=== PATIENT | male | born 1955 | race Caucasian/White ===

== ENCOUNTER 2017-12-03 20:59 | Emergency (ER) | payer BC ==
[~2017-12-03] VITALS: Ht 175.3 cm; Wt 74.3 kg
[2017-12-03] MEDS ORDERED: FAMOTIDINE 20 MG/2 ML VIAL ONE (21:14)
[2017-12-03] MEDS ORDERED: DEXAMETHASONE SOD PHOS 10 MG/ML VIAL ONE (21:14)
[2017-12-03] MEDS ORDERED: diphenhydrAMINE 50 MG/ML VIAL ONE (21:14)
[2017-12-03] MEDS ORDERED: methylPREDNISolone SOD SUCC PF 125 MG/2 ML VIAL. ONE (21:14)
[2017-12-03] MEDS ORDERED: methylPREDNISolone SOD SUCC PF 125 MG/2 ML VIAL. IV ONE (21:30)
[2017-12-03] MEDS ORDERED: FAMOTIDINE 20 MG TABLET PO ONE (21:30)
[2017-12-03] MEDS ORDERED: diphenhydrAMINE 50 MG/ML VIAL IV ONE (21:30)
[2017-12-03] MEDS ORDERED: FAMOTIDINE 20 MG/2 ML VIAL IVP ONE (21:45)
[2017-12-03 22:10] VITALS: BP 116/55
[2017-12-03] MEDS ORDERED: FAMO-63 PO (22:18)
[2017-12-03] MEDS ORDERED: PRED50TA PO (22:19)
--- NOTE | 2017-12-03 22:19 | PHYS DOC ---
Adult General Chief Complaint Chief Complaint: SKIN RASH/ABSCESS HPI HPI Patient is a 60-year-old gentleman who presents here today secondary to a diffuse body rash which she feels is likely secondary to recently ingesting cashews. Patient reports he ate cashews and shortly thereafter started having abdominal cramping had 3 bouts of diarrhea while he was walking in a store. Shortly thereafter he started experiencing a rash and itching to the skin. Patient reports he went home and took 35 mg of Benadryl by mouth without any significant improvement. Patient reports she's been having abdominal cramping and diarrhea. She denies any shortness of breath. Patient has any wheezing. Patient has any fevers shakes chills cough cold rhinorrhea. 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 Review of systems: Constitutional: Denies fever or chills Eyes: Denies change in visual acuity, redness, or eye pain HENT: Denies nasal congestion or sore throat All other review systems are negative except as documented in the history of present illness portion. Physical exam: Constitutional: Well developed, well nourished, no acute distress, non-toxic appearance. HENT: Normocephalic, atraumatic, bilateral external ears normal, nose normal. Eyes: EOMI, conjunctiva normal, no discharge. Neck: Normal range of motion, no tenderness, supple, no stridor. Cardiovascular:Heart rate regular rhythm Lungs & Thorax: Bilateral breath sounds clear to auscultation no respiratory distress Abdomen: Bowel sounds normal, soft, no tenderness, no masses, no pulsatile masses. Skin: Warm, dry, erythema, Back: No tenderness, no CVA tenderness. Extremities: No tenderness, no cyanosis, no clubbing, ROM intact, no edema. Neurologic: Alert and oriented X 3, normal motor function, normal sensory function, no focal deficits noted. Psychologic: Affect normal, judgement normal, mood normal. Skin consistent with a rash with hives diffusely to his upper extremity and chest. Oropharynx is clear. No stridor. No uvular or tongue edema. Assessment and plan 62-year-old gentleman who likely has a allergy to cashews. Patient was given 25 of additional IV Benadryl as well as Pepcid and sign Medrol in the ED and be observed approximately an hour later with significant resolution of his rash. Patient feels much better and is requesting to be discharged home. Patient be sent home with adequate medications for his rash. Patient was instructed to take 2 of his [id number] Benadryl tablets home every 6 hours in addition to the prednisone and Pepcid that he will be prescribed. Current Medications Current Medications Current Medications Medications (Trade) Dose Ordered Sig/Josefina Start Time Stop Time Status Last Admin Dose Admin Dexamethasone Sodium Phosphate (Decadron) 10 mg STK-MED ONCE 12/03/17 21:14 12/03/17 21:15 DC Diphenhydramine HCl (Benadryl) 25 mg 1X ONCE 12/03/17 21:30 12/03/17 21:31 DC 12/03/17 21:33 25 MG Famotidine (Pepcid Vial) 20 mg 1X ONCE 12/03/17 21:45 12/03/17 21:46 DC 12/03/17 21:35 20 MG Famotidine (Pepcid) 20 mg 1X ONCE 12/03/17 21:30 12/03/17 21:31 DC Methylprednisolone Sodium Succinate (SOLU-Medrol 125MG VIAL) 125 mg 1X ONCE 12/03/17 21:30 12/03/17 21:31 DC 12/03/17 21:33 125 MG Allergies Allergies Allergies Coded Allergies Type Severity Reaction Last Updated Verified Penicillins Allergy Unknown 12/03/17 Yes EKG EKG [] Radiology/Procedures Radiology/Procedures [] Course & Med Decision Making Course & Med Decision Making Pertinent Labs and Imaging studies reviewed. (See chart for details) [] Dragon Disclaimer Dragon Disclaimer This electronic medical record was generated, in whole or in part, using a voice recognition dictation system. Departure Departure: Impression: Primary Impression: Allergy to cashew nut Additional Impression: Hives Disposition: HOME, SELF-CARE Condition: IMPROVED Referrals: CHRISTY ZELAYA (PCP) Patient Instructions: Drug Allergy, [id number]-[id number], Hives Scripts Prednisone (PREDNISONE) 50 Mg Tablet 1 TAB PO DAILY, #5 TAB Prov: ROBERTO MIX MD 12/03/17 Famotidine (PEPCID) 20 Mg Tablet 1 TAB PO BID, #10 TAB 0 Refills Prov: ROBERTO MIX MD 12/03/17 Problem Qualifiers ROBERTO MIX MD Dec 03, 2017 22:19
== END 2017-12-03 22:26 | disposition home or self-care (01) ==
LOC: ER 20:59
DX: T78.1XXA Other adverse food reactions, not elsewhere classified, initial encounter (principal); L50.9 Urticaria, unspecified; Z88.0 Allergy status to penicillin; Z91.018 Allergy to other foods; X58.XXXA Exposure to other specified factors, initial encounter
CPT/HCPCS: 96374; 96375; 99285; J1200; J2930; S0028

== ENCOUNTER 2020-08-05 19:15 | Inpatient (IN) | payer BC ==
[~2020-08-05] VITALS: Ht 177.8 cm; Wt 85.4 kg
[~2020-08-05 19:15] MED LIST: FAMO-63 PO; PRED50TA PO
[2020-08-05] MEDS ORDERED: IV NORMAL SALINE 1,000ML 1,000 ML IV ONE (20:00)
--- NOTE | 2020-08-05 20:00 | PHYS DOC ---
Past History Past Medical History: A-Fib, Hypertension, Other (T-cell lymphoma? Patient is unsure.) Past Surgical History: No Surgical History Alcohol Use: Occasionally Drug Use: None Adult General Chief Complaint Chief Complaint: SHORTNESS OF BREATH HPI HPI Patient is a 65-year-old male who presents via POV for shortness of breath. Patient reports approximately 2 weeks of fatigue and generalized weakness. Reports having worsened shortness of breath and difficulty performing daily activities for past 48 hours without any known inciting event and/or trauma. Nothing known makes better, any type of physical exertion makes worse. Patient denies any focal pain but just admits generalized muscle soreness and aches. Timing of symptoms has been constant and worsening since onset. Patient reports feeling more nauseous than usual today with increased air hunger prompting him to have his drive him to our ER for evaluation. Associated symptoms include mild headache, chills, subjective fever, malaise, weakness, body aches, nonproductive cough, nausea, and increased lower extremity swelling that is new for him. Patient denies any reported fever greater than 100.4, known sick contact, known COVID-19 contact but admits he has been in the public to get groceries etc., no chest pain, no palpitations, no abdominal pain, no urinary symptoms, no changes in bladder or bowel function or frequency. Patient is not very knowledgeable on past medical history, states he has history of T-cell lymphoma but unsure if he has been treated or not. Patient denies any cardiac history but is on diltiazem and digoxin on medication review. Review of Systems Review of Systems Fourteen body systems of review of systems have been reviewed. See HPI for pertinent positives and negative responses, other alarcon all other systems are ne gative, non-pertinent or non-contributory Allergies Allergies Allergies Coded Allergies Type Severity Reaction Last Updated Verified Penicillins Allergy Unknown 12/03/17 Yes cashew nut Allergy Unknown 12/04/17 Yes Physical Exam Physical Exam Constitutional: Well developed, well nourished, no acute distress, non-toxic appearance. HENT: Normocephalic, atraumatic, bilateral external ears normal, oropharynx dry, no oral exudates, moderate postnasal drip present, no nasal discharge, external nose normal. Eyes: PERRLA, EOMI, conjunctiva normal, no discharge. Neck: Normal range of motion, no tenderness, supple, no stridor. Cardiovascular: Heart rate tachycardic and irregular without rubs or gallops Lungs & Thorax: Moderate respiratory distress, increased work of breathing, accessory muscle usage noted in neck and abdomen, no obvious rhonchi or rails, mild crackles in bilateral lobes Abdomen: Bowel sounds normal, soft, no tenderness, no masses, no pulsatile masses. Nonsurgical abdomen, no peritoneal signs Skin: Warm, dry, no erythema, no rash. Back: No tenderness, no CVA tenderness. Extremities: No tenderness, no cyanosis, no clubbing, ROM intact, 2+ pitting edema to bilateral lower extremities Neurologic: Alert and oriented X 3, grossly normal motor & sensory function, no focal deficits noted. Psychologic: Affect normal, judgement normal, anxious mood Current Patient Data Vital Signs Vital Signs Date Time Temp Pulse Resp B/P (MAP) Pulse Ox O2 Delivery O2 Flow Rate FiO2 08/06/20 00:21 78 24 102/76 (85) 95 Nasal Cannula 4.0 08/05/20 23:36 152 137/95 08/05/20 19:15 97.4 136 40 157/90 (112) 94 Lab Results Laboratory Tests Test 08/05/20 19:42 08/05/20 19:58 08/05/20 20:05 08/05/20 20:15 Sodium Level 131 mmol/L (136-145) Potassium Level 5.0 mmol/L (3.5-5.1) Chloride Level 98 mmol/L (98-107) Carbon Dioxide Level 18 mmol/L (21-32) Anion Gap 15 (6-14) Blood Urea Nitrogen 47 mg/dL (8-26) Creatinine 2.0 mg/dL (0.7-1.3) Estimated GFR (Cockcroft-Gault) 33.7 BUN/Creatinine Ratio 24 (6-20) Glucose Level 117 mg/dL (70-99) Lactic Acid Level 5.5 mmol/L (0.4-2.0) Calcium Level 8.9 mg/dL (8.5-10.1) Total Bilirubin 1.5 mg/dL (0.2-1.0) Aspartate Amino Transf (AST/SGOT) 487 U/L (15-37) Alanine Aminotransferase (ALT/SGPT) 570 U/L (16-63) Alkaline Phosphatase 131 U/L (46-116) Troponin I Quantitative 0.075 ng/mL (0-0.055) TQ-Afw-K-Type Natriuretic Peptide 9965 pg/mL (0-124) Total Protein 7.1 g/dL (6.4-8.2) Albumin 3.8 g/dL (3.4-5.0) Albumin/Globulin Ratio 1.2 (1.0-1.7) Bedside Venous pH 7.29 (7.32-7.42) Bedside Venous pCO2 43 mmHg (41-51) Bedside Venous pO2 30 mmHg (20-40) Venous Blood HCO3 21 mmol/L (24-28) POC Venous O2 Saturation (Corie) 50 % Bedside FiO2 21 Influenza Type A (Rapid) Negative (NEGATIVE) Influenza Type B (Rapid) Negative (NEGATIVE) White Blood Count 21.5 x10^3/uL (4.0-11.0) Red Blood Count 5.40 x10^6/uL (4.30-5.70) Hemoglobin 16.2 g/dL (13.0-17.5) Hematocrit 52.1 % (39.0-53.0) Mean Corpuscular Volume 97 fL (79-100) Mean Corpuscular Hemoglobin 30 pg (25-35) Mean Corpuscular Hemoglobin Concent 31 g/dL (31-37) Red Cell Distribution Width 14.5 % (11.5-14.5) Platelet Count 251 x10^3/uL (140-400) Neutrophils (%) (Auto) 84 % (31-73) Lymphocytes (%) (Auto) 8 % (24-48) Monocytes (%) (Auto) 8 % (0-9) Eosinophils (%) (Auto) 0 % (0-3) Basophils (%) (Auto) 0 % (0-3) Neutrophils # (Auto) 18.1 x10^3uL (1.8-7.7) Lymphocytes # (Auto) 1.6 x10^3/uL (1.0-4.8) Monocytes # (Auto) 1.7 x10^3/uL (0.0-1.1) Eosinophils # (Auto) 0.0 x10^3/uL (0.0-0.7) Basophils # (Auto) 0.0 x10^3/uL (0.0-0.2) Segmented Neutrophils % 76 % (35-66) Lymphocytes % 15 % (24-48) Monocytes % 9 % (0-10) Platelet Estimate Adequate (ADEQUATE) Test 08/06/20 00:10 Lactic Acid Level 7.3 mmol/L (0.4-2.0) EKG EKG EKG ordered and interpreted by myself at 2020 hrs. as atrial fibrillation with rapid ventricular rate of 140 bpm, unremarkable intervals, right axis deviation, T wave inversions noticed in lead aVF without any other obvious fascicular blocks, right heart strain or acute ischemic findings, no STEMI Radiology/Procedures Radiology/Procedures PROCEDURE: CHEST AP ONLY INDICATION: Reason: SHOB / Spl. Instructions: / History: COMPARISON: April 2016 FINDINGS: Single view of chest obtained. Enlarged cardiac mediastinal silhouette. Blunting of the costophrenic angles. Calcific atherosclerosis. Mild interstitial opacities bilaterally IMPRESSION: * Mild interstitial opacities bilaterally. Could be from mild pulmonary vascular congestion. There is some blunting of the costophrenic angles which could be from small pleural effusion or pleural thickening. * Enlarged cardiac mediastinal silhouette with calcific atherosclerosis. Electronically signed by: David Watkins MD (08/05/2020 9:18 PM) [id number] Heart Score HEART Score for Chest Pain: HEART Score for Chest Pain Response (Comments) Value History Moderately Suspicious 1 ECG Nonspecific Repolarizatio 1 Age >45 - < 65 1 Risk Factors >3 Risk Factors or Hx CAD 2 Troponin >1-<3x Normal Limit 1 Total 6 Risk Factors: Risk Factors: DM, Current or recent (<one month) smoker, HTN, HLP, family history of CAD, obesity. Risk Scores: Risk Factors: DM, Current or recent (<one month) smoker, HTN, HLP, family history of CAD, obesity. Course & Med Decision Making Course & Med Decision Making Airway patent, breathing labored and in moderate distress on arrival, vitals remarkable for fluctuating ventricular rate ranging from 120s to 140s and tachypnea with respiratory rate ~25-35 rpm with other vitals unremarkable IV access obtained. Comprehensive history and physical exam performed with subsequent diagnostic work-up pursued. Patient septic appearing from likely respiratory source. Given symptomology, I am concerned this is multifocal pneumonia versus COVID-19 given laboratory findings. 1 L normal saline and 2 g Rocephin and 500 mg azithromycin administered I called on-call hospitalist and case discussed, Dr. Connelly agreed to admission to ICU at [facility] for further medical management under his care On-call hardener helper was called and case discussed. Discussed patient's home medication list and fluctuating rapid ventricular rate while in ER. I discussed my concern for cardiac etiology versus infectious etiology as cause of patient's rapid ventricular rate. At this time in care, patient's ventricular rate fluctuating between 140s to 150s. I expressed my concern I may have volume overloaded patient with IV fluid rehydration and so, decision was made to administer IV 40 mg Lasix. Recommendations were given to start diltiazem push and subsequent drip if heart rate continued to be greater than 140 bpm. Patient updated on plan of care and was amenable to transport to [facility] for admission to the ICU for continued medical management. He was given 40 mg IV Lasix prior to departure in stable condition for further medical care. Patient's was updated and aware of plan Dragon Disclaimer Dragon Disclaimer This electronic medical record was generated, in whole or in part, using a voice recognition dictation system. Departure Departure: Impression: Primary Impression: Acute respiratory distress Additional Impressions: Atrial fibrillation with RVR Sepsis Person under investigation for COVID-19 Disposition: 09 ADMITTED INPT THIS HOSP Admitting Physician: Antoni Connelly Condition: STABLE Referrals: CHRISTY ZELAYA (PCP) Problem Qualifiers WEST GODDARD DO Aug 05, 2020 20:00
[2020-08-05 20:30] LABS: CALCIUM 8.9 mg/dL (8.5-10.1); GFR 33.7
[2020-08-05 20:41] LABS: ALBUMIN 3.8 g/dL (3.4-5.0); ALBUMIN/GLOBULIN RATIO 1.2 (1.0-1.7); TOTAL BILIRUBIN 1.5 mg/dL (0.2-1.0); TOTAL PROTEIN 7.1 g/dL (6.4-8.2)
[2020-08-05 20:54] LABS: BASO % 0 % (0-3); EOS % 0 % (0-3); HEMATOCRIT 52.1 % (39.0-53.0); HEMOGLOBIN 16.2 g/dL (13.0-17.5); LYMPH # 1.6 x10^3/uL (1.0-4.8); LYMPH % 8 % (24-48); MEAN CORPUSCULAR HEMOGLOBIN 30 pg (25-35); MEAN CORPUSCULAR HGB CONC 31 g/dL (31-37); MEAN CORPUSCULAR VOLUME 97 fL (79-100); MONO # 1.7 x10^3/uL (0.0-1.1); MONO % 8 % (0-9); NEUT # 18.1 x10^3uL (1.8-7.7); NEUT % 84 % (31-73); PLATELET COUNT 251 x10^3/uL (140-400); RED CELL DISTRIBUTION WIDTH 14.5 % (11.5-14.5); WHITE BLOOD COUNT 21.5 x10^3/uL (4.0-11.0)
[2020-08-05 21:10] LABS: INFLUENZA A PATIENT NEGATIVE (NEGATIVE); INFLUENZA B PATIENT NEGATIVE (NEGATIVE)
[2020-08-05 21:18] LABS: % LYMPHS 15 % (24-48); % MONOS 9 % (0-10); % SEGS 76 % (35-66); PLT ESTIMATE ADEQUATE (ADEQUATE)
--- NOTE | 2020-08-05 21:21 | RAD ---
INDICATION: Reason: SHOB / Spl. Instructions: / History: COMPARISON: April 2016 FINDINGS: Single view of chest obtained. Enlarged cardiac mediastinal silhouette. Blunting of the costophrenic angles. Calcific atherosclerosis. Mild interstitial opacities bilaterally IMPRESSION: * Mild interstitial opacities bilaterally. Could be from mild pulmonary vascular congestion. There is some blunting of the costophrenic angles which could be from small pleural effusion or pleural thickening. * Enlarged cardiac mediastinal silhouette with calcific atherosclerosis. Electronically signed by: David Watkins MD (08/05/2020 9:18 PM) [id number]
[2020-08-05] MEDS ORDERED: IV NORMAL SALINE 250ML 250 ML ONE (21:49)
[2020-08-05] MEDS ORDERED: AZITHROMYCIN 500 MG VIAL. IV ONE (21:49)
[2020-08-05] MEDS ORDERED: IV NORMAL SALINE 100ML 100 ML ONE (21:49)
[2020-08-05] MEDS ORDERED: AZITHROMYCIN 500 MG in IV NORMAL SALINE 250ML 250 ML IV ONE (22:00)
--- NOTE | 2020-08-05 22:11 | EKG ---
[address] [address] Test Date: 2020-08-05 Test Time: 20:15:33 Pat Name: KINGSLEY PLATA Department: Room: Gender: M Vest Front Presser: : 1955 Requested By: WEST GODDARD Order Number: [id number] Reading MD: Measurements Intervals [place] Rate: 140 P: OR: QRS: 99 QRSD: 80 T: -62 QT: 296 QTc: 455 Interpretive Statements IRREGULAR RHYTHM, NO P-WAVE FOUND VENTRICULAR PREMATURE COMPLEX(ES) RIGHTWARD AXIS LOW LIMB LEAD VOLTAGE QRS(T) CONTOUR ABNORMALITY CONSISTENT WITH ANTEROSEPTAL INFARCT PROBABLY OLD T ABNORMALITY IN INFEROLATERAL LEADS ABNORMAL ECG RI6.02 No previous ECG available for comparison
[2020-08-05] MEDS ORDERED: dilTIAZem VIAL 125 MG in IV NORMAL SALINE 100ML 100 ML IV PRN (23:00)
[2020-08-05] MEDS ORDERED: FUROSEMIDE 40 MG/4 ML VIAL IVP ONE (23:30)
[2020-08-05] MEDS ORDERED: dilTIAZem 25 MG/5 ML VIAL IVP ONE (23:30)
[2020-08-05 23:49] VITALS: BP 137/95
[2020-08-06 00:11] VITALS: BP 102/76
[2020-08-06 00:20] VITALS: BP 104/67
[2020-08-06 00:21] VITALS: BP 102/76
[2020-08-06] MEDS ORDERED: EPINEPHrine SYRINGE 1 MG/10 ML SYRINGE ONE (00:30)
--- NOTE | 2020-08-06 01:34 | PDOC ---
PROVIDER NOTE PROVIDER NOTE PROVIDER NOTE Patient stabilized satisfactorily prior to ER transport to [facility] ICU Later in patient's care in ICU, his rate continued to be greater than 140 bpm and so, he was administered 18 mg IV diltiazem bolus and subsequent drip was initiated with improvement in patient's heart rate. Per nursing report, patient experienced anxiety type attack later in the evening and was found to be more tachypneic with recurrence of tachycardia and worsening respiratory distress. He subsequently was observed bradying down when he went pulseless and CODE BLUE was called at 00 40 hours. ACLS was immediately initiated and I was transported from [facility] ER to the [facility] ICU to immediately evaluate patient Downtime prior to compressions: 0 minutes Initial Rhythm: PEA Cardiac compressions were performed by staff in order to sustain blood flow. The patient was ventilated and oxygenated. The patient received appropriate ACLS nicole sures and these were repeated as necessary throughout the resuscitation. CPR was performed under my direct supervision and guidance. On arrival, I immediately intubated patient using a MAC 3 blade and 7.5 ET tube, this was performed on first try with good visualization of vocal cords and was able to see tube passed through subsequent cords, positive and tidal CO2 and CO2 color change with bilateral breath sounds present, no issues reported with bagging patient. See nursing note for medications and times given. This patient required critical care. Due to the fact that the patient required a significant amount of one on one physician - patient contact time, ordering and review of studies, arranging urgent treatment with development of a management plan, evaluation of patients response to treatment with frequent reassessments, and discussions with other providers this patient required critical care time in excess of 30 minutes. Critical care time was indicated due to the inherent instability and/or potentia l for instability in this patient. The critical care time that is allocated to this patient is above and beyond any time spent on any other billable procedures performed on this patient. After greater than 30 minutes of ACLS measures, was notified of the situation and that the patient's overall prognosis was poor. requested that we continue to do all that we can and deferred decision to my medical judgment. Additional rounds of ACLS were pursued, entire healthcare team discussed case at length and it was felt that patient's overall survival and prognosis given length of resuscitation without response was poor. After dis continuation of resuscitation, I did not observe spontaneous breathing or appreciate heart sounds on auscultation. There was no palpable radial pulse. The patient did not respond to nail bed stimuli. I examined the patient and there was no pupillary response to light. Patient was pronounced at 0110 hours. I called and notified her of her 's passing. I discussed my concern for potential COVID-19 versus infectious pulmonary process as likely etiologies of patient's respiratory distress and subsequent cardiovascular collapse and . I offered my condolences and answered all questions and concerns prior to ending phone discussion. Justification of Admission: Justification of Admission: Justification of Admission Dx: Yes Comminuty Aquired Pneumonia: Hemodynamic Instability Sepsis: Tachypnea WEST GODDARD DO Aug 06, 2020 01:34
[2020-08-06] MEDS ORDERED: DILT240C4 PO (04:26)
[2020-08-06] MEDS ORDERED: DIGO125T3 PO (04:26)
[2020-08-06] MEDS ORDERED: LISI-334 PO (04:26)
[2020-08-06] MEDS ORDERED: ASPI81TA59 PO (04:26)
[2020-08-06] MEDS ORDERED: OMEP40CA45 PO (04:26)
== END 2020-08-06 03:25 | DRG 872 ==
LOC: ER 19:15 → ICU 22:49
PROVIDERS: ADMIT Internal Medicine; ATTEND Internal Medicine
PROC: 5A12012 Performance of Cardiac Output, Single, Manual (ICD-10-PCS; principal; 2020-08-06)
DX: A41.9 Sepsis, unspecified organism (principal); I48.91 Unspecified atrial fibrillation; Z20.828 Contact with and (suspected) exposure to other viral communicable diseases; I10 Essential (primary) hypertension; Z88.0 Allergy status to penicillin; Z88.8 Allergy status to other drugs, medicaments and biological substances; Z91.018 Allergy to other foods; R06.03 Acute respiratory distress; F41.9 Anxiety disorder, unspecified
CPT/HCPCS: 36415; 71045; 80053; 82803; 83605; 83880; 84484; 85007; 85025; 87040; 87804; 93005; 96361; 96365; 96368; J0171; J0456; J0696; J1940; J3490; J7050; U0003; 99285-25; J7030